=== PATIENT | male | born 1985 | race Caucasian/White ===

== ENCOUNTER → 2023-07-02 13:41 | Outpatient (CLI) | payer OTHER, SELFPAY ==
--- NOTE | ~2023-07-02 | US_ITS ---
EXAMINATION: US soft tissue groin LT DATE: 07/02/2023 14:20 INDICATION: Left inguinal pain. TECHNIQUE: Multiple grayscale and Doppler ultrasound images of the left groin were obtained. COMPARISON: None FINDINGS: There is no abnormal mass, lymphadenopathy, or hernia in left inguinal region. IMPRESSION: 1. Normal left inguinal region. Reviewed, dictated and finalized at location A. [employer]
--- NOTE | ~2023-07-02 | US_ITS ---
EXAMINATION: US scrotum doppler DATE: 07/02/2023 14:20 INDICATION: Testicular pain. TECHNIQUE: Grayscale and Doppler ultrasound images of the testes were obtained. COMPARISON: None. FINDINGS: The right testis measures 4.2 x 2.4 x 2.9 cm. The left testis measures 4.5 x 2.3 x 2.6 cm. There is normal vascular flow to both testes. The right epididymis is normal with normal vascular yeison w. The left epididymis demonstrates a 4 mm cyst. There is no varicocele or hydrocele. IMPRESSION: 1. No etiology for the patient's symptoms. Reviewed, dictated and finalized at location A. [employer]
== END ==
PROVIDERS: PCP Nurse Practitioner Family; Visit Provider Nurse Practitioner Family
DX: R10.2 Pelvic and perineal pain (principal); N50.819 Testicular pain, unspecified
CPT/HCPCS: 76870; 76882; 93976

== ENCOUNTER 2023-08-03 15:34 | Outpatient (CLI) | payer OTHER, SELFPAY ==
--- NOTE | ~2023-08-03 | XR_ITS ---
EXAMINATION: XR hip LT 2V w AP pelvis DATE: 08/03/2023 15:53 INDICATION: Left hip pain. TECHNIQUE: An anteroposterior view of the pelvis and 2 views of left hip were obtained. COMPARISON: None. FINDINGS: Bone alignment is normal. No fracture. There is mild osteoarthritis of the hips. IMPRESSION: 1. Mild osteoarthritis of the hips. Reviewed, dictated and finalized at location E. [employer]
== END 2023-08-03 15:35 | disposition home or self-care (01) ==
PROVIDERS: PCP Nurse Practitioner Family; Visit Provider Orthopaedic Surgery
DX: M25.552 Pain in left hip (principal); M16.0 Bilateral primary osteoarthritis of hip
CPT/HCPCS: 73502